=== PATIENT | male | born 1950 | race Caucasian/White ===

== ENCOUNTER → 2019-11-24 | Outpatient (CLI) | payer OTHER ==
[~2019-11-24] MED LIST: ALBU17IN2; ALBU83IN; CELE40TA; COLA100C2; METO50TA4; MONTELUKAST; NITR0.4S; PRIL20CA; SIMV80TA; VALS80CA; VIT D; XANA0.25
--- NOTE | 2019-11-24 09:20 | PFTRPT ---
Height: 72.00 Inches Weight: 218.00 Lbs BSA: 2.21 Diagnosis: J44.9 DATE OF PROCEDURE: 11/24/2019 ORDERED BY: Dr. Bowen Spirometry: Pre and post bronchodilator study of excellent technical quality. Forced vital capacity reduced. FEV1 out of proportion. Obstructive index is, therefore, reduced. Flow Volume Loop: Expiratory limb of the flow volume loop is consistent with flow rate limitation. No significant bronchodilator response is identified. Lung Volumes: Total lung capacity elevated. Residual volume consistent with air trapping. Diffusing Capacity: Diffusing capacity is normal. Hemoglobin: Hemoglobin is not available for correction. Airway Mechanics: Airway resistance and conductance are normal. IMPRESSION: At least moderate obstructive ventilatory impairment with air trapping. No significant bronchodilator response. Please correlate clinically. MTDD
--- NOTE | 2019-11-25 18:20 | REP ---
Clinical: COPD. Technique: Axial noncontrast images from the thoracic inlet to the upper abdomen with coronal and sagittal re-formations. Comparison: None. Findings: Moderate ill-defined opacities in the bilateral apices, right middle lobe, lingula, and lower lobes suggest chronic pleuroparenchymal changes along with evidence for moderate COPD/emphysematous disease. Areas of opacity involving the basilar right middle lobe are nonspecific and may represent chronic scarring / atelectasis, but active pathology cannot definitively be excluded. No effusion. No obvious significant adenopathy. No pneumothorax. Atherosclerotic changes to the thoracic aorta and coronary arteries noted without aortic aneurysm or cardiomegaly. No pericardial effusion. Musculoskeletal structures demonstrate age-related degenerative changes without focal abnormality. Impression: 1. Moderate COPD/emphysematous changes along with possible chronic biapical and basilar pleuroparenchymal changes. 2. Areas of opacity in the basilar right middle lobe are nonspecific and while these may represent chronic scarring / atelectasis, active pathology cannot be excluded. No prior examinations are available for comparison and short-term 3-month follow-up is suggested. Electronically Signed by Jeremie Celestin MD 11/25/2019 06:11 P
== END ==
LOC: M RAD 08:32
PROVIDERS: ATTEND Internal Medicine Pulmonary Disease
DX: J44.9 Chronic obstructive pulmonary disease, unspecified (principal)

== ENCOUNTER → 2020-02-24 | Outpatient (CLI) | payer OTHER ==
--- NOTE | 2020-02-24 15:06 | REP ---
REASON: Followup. [facility] protocol also utilized. COMPARISON: 11/24/2019 There is no significant change in the appearance of the mediastinum or pulmonary outlet. There are no pleural or pericardial effusions. There is no significant change in the appearance of the imaged upper abdomen or imaged osseous structures. Diffuse low density is seen throughout the hepatic parenchyma consistent with fatty infiltration. The lower region of the lung val[place] shows improvement in the irregular density in the inferior right middle lobe. There are other changes which are stable and chronic. There are no new abnormal nodules, masses or opacities. IMPRESSION: 1. There has been some improvement in the inferior right middle lobe density, however, there are other chronic stable changes. 2. There is fatty infiltration of the liver. Electronically Signed by Lazarus Urbina DO 02/24/2020 04:10 P
== END ==
LOC: M RAD 10:47
PROVIDERS: ATTEND Internal Medicine Pulmonary Disease
DX: R91.8 Other nonspecific abnormal finding of lung field (principal); K76.0 Fatty (change of) liver, not elsewhere classified

== ENCOUNTER → 2020-08-29 | Outpatient (CLI) | payer OTHER ==
--- NOTE | 2020-08-29 10:38 | REP ---
INDICATION: ABN FINDING OF LUNG COMPARISON: 02/24/2020 TECHNIQUE: Axial noncontrast images from the thoracic inlet to the upper abdomen with coronal and sagittal reformations. This CT examination was performed using the following dose reduction techniques: Automated exposure control, adjustment of mA and/or kv according to the patient's size, and use of iterative reconstruction technique. FINDINGS: Somewhat linear ill-defined area of density in the right middle lobe is unchanged compared to 02/24/2020 and likely represents residual scarring. Chronic biapical scarring with scattered small bullae/blebs along with mild bronchiectasis is consistent with early emphysematous disease. No acute consolidation, significant nodule, or mass lesion. No pleural effusion. No pneumothorax. No significant adenopathy. Atherosclerotic changes to the thoracic aorta and coronary arteries again noted. Surrounding musculoskeletal structures are intact and without acute osseous abnormality. IMPRESSION: 1. Chronic appearing changes including stable presumed linear scarring in the right middle lobe. No acute or suspicious consolidation, nodule or mass. 2. Further chronic stable changes as noted above. <Electronically signed by Jeremie Celestin > 08/29/20 [id number]
== END ==
LOC: M RAD 10:11
PROVIDERS: ATTEND Internal Medicine Pulmonary Disease
DX: R91.8 Other nonspecific abnormal finding of lung field (principal); J47.9 Bronchiectasis, uncomplicated; I70.0 Atherosclerosis of aorta; I25.10 Atherosclerotic heart disease of native coronary artery without angina pectoris; J43.9 Emphysema, unspecified

== ENCOUNTER → 2022-05-31 | Outpatient (CLI) | payer OTHER | LOC: M RAD 17:02 | PROVIDERS: ATTEND Internal Medicine Pulmonary Disease | DX: Z12.2 Encounter for screening for malignant neoplasm of respiratory organs (principal); F17.218 Nicotine dependence, cigarettes, with other nicotine-induced disorders ==

== ENCOUNTER → 2022-06-21 | Outpatient (CLI) | payer OTHER | LOC: M CARPUL 10:51 | PROVIDERS: ATTEND Internal Medicine Pulmonary Disease | DX: R91.8 Other nonspecific abnormal finding of lung field (principal) ==

== ENCOUNTER → 2022-06-25 | Outpatient (CLI) | payer OTHER | LOC: M PLARAD 14:30 | PROVIDERS: ATTEND Internal Medicine Pulmonary Disease | DX: R91.8 Other nonspecific abnormal finding of lung field (principal); K44.9 Diaphragmatic hernia without obstruction or gangrene | CPT/HCPCS: 78815; A9552 ==